=== PATIENT | female | born 1955 ===

== ENCOUNTER 2019-03-10 13:35 | Emergency (ER) | payer MEDICARE ==
[2019-03-10 13:36] VITALS: BMI 26.4
[2019-03-10] MEDS ORDERED: Sodium Chloride 0.9% 500 ML IV ONE (14:17)
--- NOTE | 2019-03-10 14:17 | C.PDOC ---
History Of Present Illness 63 year old female with a history of gastric bypass years ago, prior diabetes (now resolved) presents to the emergency department with pre-syncopal episode. Patient states that she was seen in [place] on October 18, 2018 for abdominal pain, where she was found to have an infected obstructing stone. Patient was admitted at that time for sepsis with elevated lactase, when Dr. Weinstein placed the renal stent. Today, patient was in PAT (pre-admission testing) doing a workup in order to undergo a renal stent removal surgery by Dr. Weinstein. Patient states that she started feeling dizzy, sweaty, and lightheaded while sitting there. Patient denies syncope, chest pain, fever, chills, dizziness, headache, nausea, vomiting. Patient reports mild lower left-sided abdominal discomfort which she has been having, but denies dysuria. Time Seen by Provider: 03/10/19 13:53 Chief Complaint (Nursing): Dizziness/Lightheaded History Per: Patient History/Exam Limitations: no limitations Onset/Duration Of Symptoms: Hrs Current Symptoms Are (Timing): Better Activity At Onset Of Symptoms: Sitting Seizure Or Post-ictal Symptoms: None Fall Associated With With Symptoms: No Past Medical History Reviewed: Historical Data, Nursing Documentation, Vital Signs Vital Signs: Last Vital Signs Temp 98.7 F 03/10/19 13:44 Pulse 68 03/10/19 13:44 Resp 14 03/10/19 13:44 BP 132/70 03/10/19 13:44 Pulse Ox 95 03/10/19 13:44 - Medical History PMH: No Chronic Diseases Denies: Diabetes (Hx of Dm, resolved s/p Gastric Bypass 2011), Chronic Kidney Disease Comment Only: HTN (Hx of HTN, resolved s/p Gastric Bypass 2011) Surgical History: Appendectomy, Cholecystectomy, - [facility] DILATION OF LEFT URETER WITH INTRALUMINAL DEVICE, ENDO (10/18/18) EXCISION OF STOMACH, ENDO, DIAGN (08/02/16) INSPECTION OF LOWER INTESTINAL TRACT, ENDO (08/02/16) Family History: States: No Known Family Hx - Social History Hx Tobacco Use: No Hx Alcohol Use: No Hx Substance Use: No - Immunization History Hx Influenza Vaccination: Yes Hx Pneumococcal Vaccination: Yes Review Of Systems Except As Marked, All Systems Reviewed And Found Negative. Constitutional: Negative for: Fever, Chills Cardiovascular: Negative for: Chest Pain, Light Headedness Respiratory: Negative for: Cough, Shortness of Breath Gastrointestinal: Positive for: Abdominal Pain. Negative for: Nausea, Vomiting, Diarrhea Genitourinary: Negative for: Dysuria Neurological: Negative for: Headache Physical Exam - Physical Exam Appears: Non-toxic, No Acute Distress, Other (cooperative) Skin: Normal Color, Warm, Dry Head: Atraumatic, Normacephalic Eye(s): bilateral: Normal Inspection, PERRL, EOMI Nose: Normal Oral Mucosa: Moist Neck: Normal, Supple Chest: Symmetrical, No Tenderness Cardiovascular: Rhythm Regular, No Murmur Respiratory: Normal Breath Sounds, No Rales, No Rhonchi, No Wheezing Gastrointestinal/Abdominal: Soft, Tenderness (mild tenderness to left lower abdomen), No Guarding, No Rebound Extremity: Normal ROM Neurological/Psych: Oriented x3, Normal Speech, Normal Cognition ED Course And Treatment - Laboratory Results Result Diagrams: 03/10/19 14:21 03/10/19 14:21 O2 Sat by Pulse Oximetry: 95 (RA) Pulse Ox Interpretation: Normal Medical Decision Making Medical Decision Making: Spoke to Dr. Weinstein who said that patient needs medical clearance in order for him to perform the procedure. He requested urine culture and KUB. Plan: EKG Chemistry CBC CXR Glucose POC NaCl IV Fluids Urine Culture XR Abdomen (Flat Plate) Urinalysis Disposition Discussed With : Mendel Weinstein - Disposition Referrals: Mendel Weinstein MD [Staff Provider] - Disposition: HOME/ ROUTINE Disposition Time: 15:32 Condition: STABLE Additional Instructions: Follow up with your doctor for medical clearance for the urology procedure (renal stent removal). Follow up with Dr. Weinstein. Instructions: Near Fainting (DC) Forms: [facility] (Algerian), Gen Discharge Inst Algerian - POA Present On Arrival: None - Clinical Impression Clinical Impression: Near syncope, Kidney stones, History of renal stent - Scribe Statement The provider has reviewed the documentation as recorded by the Scribe (Genaro Jay) Provider Attestation: All medical record entries made by the Scribe were at my direction and personally dictated by me. I have reviewed the chart and agree that the record accurately reflects my personal performance of the history, physical exam, medical decision making, and the department course for this patient. I have also personally directed, reviewed, and agree with the discharge instructions and disposition.
[2019-03-10 14:24] LABS: BASO # 0.1 K/uL (0.0-0.2); BASO % 0.9 % (0.0-2.0); EOS # 0.1 K/uL (0.0-0.7); EOS % 2.3 % (0.0-4.0); LYMPH % 49.2 % (20.0-40.0); MEAN CORPUSCULAR HEMOGLOBIN 25.9 pg (27.0-31.0); MEAN CORPUSCULAR HGB CONC 32.8 g/dL (33.0-37.0); MEAN PLATELET VOLUME 7.3 fL (7.2-11.7); MONO # 0.4 K/uL (0.0-0.8); MONO % 7.2 % (0.0-10.0); NEUT # 2.5 K/uL (1.8-7.0); NEUT % 40.4 % (50.0-75.0); NRBC % 0.1 % (0.0-2.0); RBC 3.62 Mil/uL (3.80-5.20); RED CELL DISTRIBUTION WIDTH 18.1 % (11.5-14.5); WHITE BLOOD COUNT 6.1 K/uL (4.8-10.8)
[2019-03-10 14:25] LABS: HEMOGLOBIN 9.4 g/dL (11.0-16.0); MEAN CELL VOLUME 78.9 fL (81.0-99.0)
[2019-03-10 14:36] LABS: ALB/GLOB RATIO 1.5 (1.0-2.1); ALBUMIN 4.3 g/dL (3.5-5.0); ALT/SGPT 16 U/L (9-52); AST/SGOT 22 U/L (14-36); BLOOD UREA NITROGEN 13 mg/dL (7-17); CALCIUM 9.2 mg/dl (8.6-10.4); GFR NON-AFRICAN AMERICAN > 60
[2019-03-10] MEDS ORDERED: Sodium Chloride 0.9% 1,000 ML ONE (14:36)
[2019-03-10 14:48] LABS: B-TYPE NATRIURETIC PEPTIDE 98.1 pg/mL (0-900)
[2019-03-10 15:02] LABS: SQUAMOUS EPITHIAL 1 /hpf (0-5); URINE BILIRUBIN NEGATIVE (NEGATIVE); URINE BLOOD NEGATIVE (NEGATIVE); URINE CLARITY Clear (Clear); URINE COLOR Yellow (YELLOW); URINE GLUCOSE (UA) NORMAL (Normal); URINE LEUKOCYTE ESTERASE TRACE Leu/uL (Negative); URINE PROTEIN NEGATIVE (NEGATIVE); URINE UROBILINOGEN NORMAL mg/dL (0.2-1.0)
[2019-03-10 15:50] VITALS: BP 144/72; PULSE 69; RESP 19; TEMP 97.9; O2SAT 100
--- NOTE | 2019-03-10 15:52 | RAD ---
Date of service: 03/10/2019 PROCEDURE: CHEST RADIOGRAPH, 1 VIEW HISTORY: chest pain COMPARISON: 12/05/2014 FINDINGS: LUNGS: Shallow lungs No air bronchograms to suggest the an acute infiltrate. PLEURA: No pneumothorax or pleural fluid seen. CARDIOVASCULAR: There is presence of aortic atherosclerotic calcification on x-ray. Mild cardiomegaly No significant appearing pulmonary venous congestion. OSSEOUS STRUCTURES: Bilateral shoulder arthrosis. Thoracic spondylosis. Apparent asymmetrical sclerosis of the right anterior 1st rib/coaster cartilaginous junction findings not especially seen as such on the prior study could be due to differences in projection. VISUALIZED UPPER ABDOMEN: Normal. OTHER FINDINGS: Probable summation of soft tissues over the left costophrenic angle. IMPRESSION: Possible asymmetrical sclerosis anterior right 1st rib/coaster cartilaginous junction. To exclude any interval underlying right upper lobe pulmonary pathology here, consider apical lordotic views. Comments: Study marked for PA review .
--- NOTE | 2019-03-10 16:05 | RAD ---
Date of service: 03/10/2019 HISTORY: renal stents COMPARISON: CT abdomen and pelvis 08/02/2016 TECHNIQUE: 1 view obtained. FINDINGS: BOWEL: Moderate stool retention present. No bowel obstruction appreciated. J ureteral stent in place. Prior 7 mm calcification in the left central collecting system appears to have migrated down along the left ureter adjacent to the left ureteral stent at the approximate inferior L3 vertebral body level on this exam. BONES: Bilateral L5-S1 facet hypertrophic arthrosis. Mild bilateral hip arthrosis. Pubic symphyseal mild arthrosis. Asymmetric right inferior sclerotic SI joint arthrosis. OTHER FINDINGS: The multiple calcific like densities projecting over each iliac bone probably relate to injection gluteal granulomas. IMPRESSION: Left ureteral J stent in place.. This 7 mm calculus suspect occasion projecting adjacent to the left proximal ureter at the L3 level is compatible with a prior similarly sized calculus projecting of the left renal collecting system having migrated to the left ureter at this level. Other findings as above.
--- NOTE | 2019-03-12 | CARD ---
APPROVED REPORT Date of service: 03/10/2019 EKG Measurement Heart [id number] <Conclusion> Normal sinus rhythm Minimal voltage criteria for LVH, may be normal variant Borderline ECG
== END 2019-03-10 15:51 | disposition home or self-care (01) ==
LOC: C.ER 13:35
DX: R55 Syncope and collapse (principal); N20.0 Calculus of kidney; I10 Essential (primary) hypertension; Z98.84 Bariatric surgery status; Z98.890 Other specified postprocedural states
CPT/HCPCS: 71045; 74018; 80053; 81001; 82948; 83880; 84484; 85025; 87086; 93005; 99285; J7040

== ENCOUNTER 2019-03-13 12:09 | Outpatient (CLI) | payer MEDICARE | END 2019-03-13 12:10 | disposition home or self-care (01) | LOC: C.RADIC 12:09 ==